=== PATIENT | female | born 1965 | race African-American/Black ===

== ENCOUNTER → 2016-06-27 | Outpatient (CLI) | payer BC ==
[~2016-06-27] MED LIST: REGADENOSON 0.4 MG/5 ML SYG ONE
--- NOTE | 2016-06-27 13:00 | RADRPT ---
PROCEDURE: Lexiscan myocardial perfusion study CLINICAL INDICATION: 51 -year-old patient complaining of chest pain. TECHNIQUE: Lexiscan 0.4 mg intravenously separate acquisition gated myocardial perfusion SPECT usi ng Tc 99m Myoview 31.4 mCi intravenously at stress and Tc-99m Myoview, 10.2 mCi intravenously at res t was performed using the rest/stress sequence. Poststress Myoview SPECT images were obtained in th e supine position. COMPARISON: No prior studies. FINDINGS: Perfusion images reveal mild nonreversible reduction in perfusion in the inferior wall. Lexiscan post stress gated SPECT images demonstrate no wall motion abnormalities. IMPRESSION: 1. No evidence of stress-induced ischemia. 2. No wall motion abnormalities. 3. The left ventricle ejection fraction at stress is 63%. A call report was made to Dr. So at 01:00 p.m. on June 27, 2016. RPTAT: HH .Chinyere Yu MD, MD Date Time Electronically viewed and signed by .Chinyere Yu MD, on 06/27/2016 13:00 .Facundo/
--- NOTE | 2016-06-27 15:29 | CARRPT ---
DATE OF PROCEDURE: 06/27/2016 PROCEDURE PERFORMED: Outpatient Lexiscan Cardiolite stress test. INDICATION: Chest pain, assess for ischemia. BASELINE VITAL SIGNS AND ELECTROCARDIOGRAM: Pulse 44, blood pressure 120/78. Electrocardiogram rev eals sinus bradycardia, rate 44, normal axis, normal intervals with ST elevations inferiorly and lat erally with normal concavity concerning for probable normal early repol. PROCEDURE: The patient underwent standard Lexiscan infusion protocol over 10 seconds followed by ra diolabeled tracer. The patient's test was stopped due to completion of protocol. Maximal achieved blood pressure during the test 125/65. Maximal heart rate during the test 80. ELECTROCARDIOGRAM FINDINGS: The patient did not develop any new Lexiscan-induced ST or T-wave omlina es from baseline abnormalities. No documented PVCs. SYMPTOMS: The patient had complaints of shortness of breath and flushing during stress which resolv ed in recovery. IMPRESSION: 1. No Lexiscan-induced ST or T-wave changes from baseline abnormalities or diagnostic cardiac ische shayna. 2. Complaints of shortness of breath during stress test that resolved in recovery. No chest pain. 3. No documented premature ventricular contractions during stress testing. 4. Report of nuclear images to follow in separate dictation. Dictated By: MEETA JORDAN/NTS Conf#: [id number] DID#: [id number] CC: OLVIN NOWAK MD;*EndCC*
== END | disposition home or self-care (01) ==
LOC: NUC 08:13
PROVIDERS: ATTEND Internal Medicine
DX: Z01.818 Encounter for other preprocedural examination (principal); R06.02 Shortness of breath; R94.31 Abnormal electrocardiogram [ECG] [EKG]
CPT/HCPCS: 78452; 93017; A9500; A9505; J2785